=== PATIENT | female | born 1965 | race Caucasian/White ===

== ENCOUNTER 2016-05-24 11:57 | Emergency (ER) | payer BC ==
[~2016-05-24] VITALS: Ht 157.5 cm; Wt 90.0 kg
[~2016-05-24 11:57] MED LIST: AMBIEN 10MG10 MG PO; BELSOMRA20 MG PO; BRINTELLIX20 PO; CARAFATE 1GM1 G PO; ESTRACE 1MG1 MG/TAB; HCTZ12.5TAB PO; NORCO 325 MG-101 TAB PO; NORCO 325 MG-51 TAB PO; NORCO 325 MG-7.1 TAB PO; PEN-VEE K500 MG PO; PRILOSEC 20MG20 MG PO; ULTRAM 50MG TAB50 MG PO; XANAX 1MG1 MG PO; ZOFRAN 4MG T4 MG/TAB PO; ZOFRAN ODT4 MG PO; ZOFRAN8 MG PO
[2016-05-24 12:01] VITALS: PULSE 74; TEMP 97.5
[2016-05-24] MEDS ORDERED: RELAFEN750 MG PO (12:07)
[2016-05-24 15:03] VITALS: BP 121/95
== END 2016-05-24 15:02 | disposition home or self-care (01) ==
LOC: COL.ER 11:57
DX: G89.18 Other acute postprocedural pain (principal); M25.562 Pain in left knee; I10 Essential (primary) hypertension
CPT/HCPCS: J1170

== ENCOUNTER 2016-06-26 15:20 | Emergency (ER) | payer BC, OTHER ==
[~2016-06-26] VITALS: Ht 157.5 cm; Wt 86.4 kg
[~2016-06-26 15:20] MED LIST changes: +RELAFEN750 MG PO
[2016-06-26] MEDS ORDERED: FLEXERIL 1010 MG/TAB PO (16:26)
[2016-06-26 17:08] VITALS: BP 154/89; PULSE 79; TEMP 97.9
== END 2016-06-26 17:09 | disposition home or self-care (01) ==
LOC: COL.ER 15:20
DX: S09.90XA Unspecified injury of head, initial encounter (principal); S00.83XA Contusion of other part of head, initial encounter; M62.838 Other muscle spasm; S70.02XA Contusion of left hip, initial encounter; S80.01XA Contusion of right knee, initial encounter; R09.89 Other specified symptoms and signs involving the circulatory and respiratory systems; E87.6 Hypokalemia; J44.1 Chronic obstructive pulmonary disease with (acute) exacerbation; W18.2XXA Fall in (into) shower or empty bathtub, initial encounter; Y92.002 Bathroom of unspecified non-institutional (private) residence as the place of occurrence of the external cause
CPT/HCPCS: J1885

== ENCOUNTER 2017-04-17 17:25 | Emergency (ER) | payer SELFPAY ==
[~2017-04-17] VITALS: Ht 157.5 cm; Wt 90.9 kg
[~2017-04-17 17:25] MED LIST changes: +FLEXERIL 1010 MG/TAB PO
[2017-04-17 17:26] VITALS: BP 185/77; TEMP 98.9
[2017-04-17] MEDS ORDERED: TOPROL XL 25MG25 MG (17:45)
[2017-04-17] MEDS ORDERED: CHERATUSSIN AC120 ML PO (18:42)
[2017-04-17] MEDS ORDERED: ZITHROMAX Z PA250 MG PO (18:42)
[2017-04-17 18:51] VITALS: PULSE 81
== END 2017-04-17 18:52 | disposition home or self-care (01) ==
LOC: COL.ER 17:25
DX: J20.9 Acute bronchitis, unspecified (principal); I10 Essential (primary) hypertension; I49.9 Cardiac arrhythmia, unspecified; Z95.0 Presence of cardiac pacemaker

== ENCOUNTER 2019-03-16 14:36 | Emergency (ER) | payer SELFPAY ==
[~2019-03-16 14:36] MED LIST changes: +CHERATUSSIN AC120 ML PO; +TOPROL XL 25MG25 MG; +ZITHROMAX Z PA250 MG PO
[2019-03-16 14:38] VITALS: TEMP 98
[2019-03-16 15:37] LABS: BASO # 0.1 (0.0-0.2); BASO % 0.8 % (0.0-2.0); EOS # 0.6 (0.0-0.7); EOS % 4.7 % (0-4.0); GRAN # 7.5 (1.4-6.5); GRAN % 59.9 % (42.2-75.2); LYMPH # 3.1 (1.2-3.4); LYMPH % 25.3 % (20.0-51.0); MEAN CELL VOLUME 86 fl (80.0-100.0); MEAN CORPUSCULAR HGB CONC 30 g/dl (33.0-37.0); MEAN PLATELET VOLUME 9.1 fl (7.4-10.4); MONO # 1.1 (0.1-0.6); MONO % 8.8 % (1.7-9.3); PLATELET COUNT 238 K/mm3 (130-400); RED BLOOD COUNT 3.65 M/mm3 (4.10-5.30)
[2019-03-16 15:38] LABS: HEMATOCRIT 31.5 % (37.0-47.0); HEMOGLOBIN 9.4 g/dl (12.5-16.0); MEAN CORPUSCULAR HEMOGLOBIN 26 pg (27.0-31.0)
[2019-03-16 15:44] LABS: ALANINE AMINOTRANSFERASE 26 U/L (9-52); ALBUMIN 3.7 gm/dL (3.5-5.0); ALKALINE PHOSPHATASE 92 U/L (50-136); ANION GAP 7 mmol/L (7-16); AST,SGOT 24 U/L (15-37); BILIRUBIN,TOTAL 0.2 mg/dL (0.0-1.0); BLOOD UREA NITROGEN 14 mg/dL (7-17); CALCIUM 8.6 mg/dL (8.4-10.2); CARBON DIOXIDE 28 mmol/L (22-30); CHLORIDE 104 mmol/L (98-107); CREATININE, serum 0.64 (0.52-1.25); GLUCOSE 119 mg/dL (74-106); POTASSIUM 4.5 mmol/L (3.4-5.0); SODIUM 139 mmol/L (137-145); TOTAL PROTEIN 6.8 gm/dL (6.4-8.2)
[2019-03-16 15:45] LABS: ALCOHOL(ethanol),MEDICAL < 10 mg/dL
[2019-03-16 16:01] LABS: TROPONIN-I < 0.012 ng/mL (0.000-0.035)
[2019-03-16 17:45] LABS: COLLECTION METHOD CLEAN CATCH
[2019-03-16 17:50] LABS: PH 6 (5-8); SQUAMOUS EPITHELIAL 0-2 /hpf; URINE APPEARANCE Clear; URINE BACTERIA None Seen /hpf; URINE BILIRUBIN Negative (NEGATIVE); URINE BLOOD Negative (NEGATIVE); URINE COLOR Yellow; URINE GLUCOSE Negative (NEGATIVE); URINE KETONE Negative (NEGATIVE); URINE LEUKOCYTE ESTERASE Negative (NEGATIVE); URINE NITRATE Negative (NEGATIVE); URINE PROTEIN(semi-quant) Negative (NEGATIVE); URINE RBC 0-2 /hpf; URINE UROBILINOGEN Negative (NEGATIVE)
[2019-03-16 18:09] LABS: TRICYCLIC ANTIDEPRESS URINE NEGATIVE
[2019-03-16 19:09] VITALS: BP 142/83; PULSE 64
== END 2019-03-16 19:18 | disposition home or self-care (01) ==
LOC: COL.ER 14:36
PROVIDERS: Emergency Medicine
DX: T42.8X5A Adverse effect of antiparkinsonism drugs and other central muscle-tone depressants, initial encounter (principal)
CPT/HCPCS: J7030

== ENCOUNTER → 2020-05-07 | Outpatient (CLI) | payer OTHER | LOC: COL.RAD | DX: M17.12 Unilateral primary osteoarthritis, left knee (principal) ==

== ENCOUNTER → 2021-01-20 | Outpatient (CLI) | payer OTHER | LOC: COL.RAD 09:03 | DX: M51.36 Other intervertebral disc degeneration, lumbar region (principal) ==

== ENCOUNTER 2021-10-13 12:03 | Emergency (ER) | payer SELFPAY ==
[~2021-10-13] VITALS: Ht 157.5 cm; Wt 104.5 kg
[2021-10-13 13:48] LABS: BASO % 0.3 % (0.0-2.0); EOS % 1.2 % (0.0-4.0); GRAN # 1.2 K/mm3 (1.4-6.5); GRAN % 36.2 % (42.2-75.2); LYMPH # 1.6 K/mm3 (1.2-3.4); LYMPH % 47.8 % (20.0-51.0); MEAN CELL VOLUME 99 fl (80.0-100.0); MEAN CORPUSCULAR HGB CONC 29 g/dl (33.0-37.0); MEAN PLATELET VOLUME 10.4 fl (7.4-10.4); MONO # 0.5 K/mm3 (0.1-0.6); MONO % 13.9 % (1.7-9.3); PLATELET COUNT 223 K/mm3 (130-400); RED BLOOD COUNT 3.27 M/mm3 (4.10-5.30); REDCELL DISTRIBUTION WIDTH-CV 18.7 % (11.5-14.5)
[2021-10-13 13:49] LABS: HEMATOCRIT 32.4 % (37.0-47.0); HEMOGLOBIN 9.5 g/dl (12.5-16.0); MEAN CORPUSCULAR HEMOGLOBIN 29 pg (27-31)
[2021-10-13] MEDS ORDERED: CHERATUSSIN AC120 ML PO (14:01)
[2021-10-13 14:03] LABS: ALBUMIN 3.3 gm/dL (3.5-5.0); BILIRUBIN,TOTAL 0.4 mg/dL (0.2-1.2); CALCIUM 8.4 mg/dL (8.4-10.2); CREATININE, serum 0.67 mg/dL (0.57-1.11); POTASSIUM 3.2 mmol/L (3.5-4.5); TOTAL PROTEIN 6.7 gm/dL (6.2-8.1)
[2021-10-13] MEDS ORDERED: ZOFRAN ODT4 MG PO (14:32)
[2021-10-13 14:45] VITALS: BP 152/89; PULSE 86; TEMP 98.3
== END 2021-10-13 14:45 | disposition home or self-care (01) ==
LOC: COL.ER 12:03
PROVIDERS: Physician Assistant
DX: U07.1 COVID-19 (principal); E87.6 Hypokalemia; Z88.5 Allergy status to narcotic agent; Z28.310 Unvaccinated for COVID-19
CPT/HCPCS: J2405; J7030

== ENCOUNTER → 2021-11-29 | Outpatient (CLI) | payer SELFPAY | LOC: COL.LAB 14:26 | PROVIDERS: Registered Nurse | DX: D64.9 Anemia, unspecified (principal) ==

== ENCOUNTER 2022-06-24 23:32 | Emergency (ER) | payer MEDICARE ==
[~2022-06-24] VITALS: Ht 157.5 cm; Wt 98.6 kg
[~2022-06-24 23:32] MED LIST changes: +AMOXICILLIN 8751 TAB PO; +LIPITOR20 MG PO; -TOPROL XL 25MG25 MG; +TOPROL XL 25MG25 MG PO
[2022-06-24 23:45] VITALS: BP 190/106; PULSE 64; TEMP 97.5
[2022-06-25] MEDS ORDERED: NORCO 325 MG-101 TAB PO (00:14)
[2022-06-25] MEDS ORDERED: AMOXICILLIN 50500 MG PO (00:14)
== END 2022-06-25 00:25 | disposition home or self-care (01) ==
LOC: COL.ER 23:32
DX: K04.7 Periapical abscess without sinus (principal); I10 Essential (primary) hypertension; D64.9 Anemia, unspecified; E87.5 Hyperkalemia; Z79.899 Other long term (current) drug therapy; Z88.1 Allergy status to other antibiotic agents; Z28.310 Unvaccinated for COVID-19

== ENCOUNTER 2023-11-19 18:01 | Emergency (ER) | payer MEDICARE ==
[~2023-11-19] VITALS: Ht 157.5 cm; Wt 96.8 kg
[~2023-11-19 18:01] MED LIST changes: +AMOXICILLIN 50500 MG PO; +NORVASC 5MG5 MG/TAB PO
[2023-11-19] MEDS ORDERED: Ketorolac 15 MG/ML VIAL IM ONE (18:45)
[2023-11-19] MEDS ORDERED: Methocarbamol 500 MG TAB PO ONE (18:45)
[2023-11-19] MEDS ORDERED: dexAMETHasone 10 MG/ML VIAL IM ONE (18:45)
[2023-11-19] MEDS ORDERED: HYDROcodone/Acetaminophen 10-325 MG TAB PO ONE (21:30)
[2023-11-19 22:09] VITALS: BP 134/81; PULSE 80; TEMP 98
== END 2023-11-19 22:09 | disposition home or self-care (01) ==
LOC: COL.ER 18:01
DX: S29.012A Strain of muscle and tendon of back wall of thorax, initial encounter (principal); X58.XXXA Exposure to other specified factors, initial encounter
CPT/HCPCS: J1100; J1885